=== PATIENT | female | born 1970 | race Caucasian/White ===

== ENCOUNTER 2017-12-07 22:23 | Emergency (ER) | payer MEDICAID ==
[~2017-12-07] VITALS: Ht 160 cm; Wt 69.9 kg
[~2017-12-07 22:23] MED LIST: ALPR1TAB2 PO
[2017-12-07 22:26] VITALS: BP 115/79
[2017-12-07] MEDS ORDERED: ONDANSETRON ODT 4 MG PO ONE (23:00)
[2017-12-07] MEDS ORDERED: ONDANSETRON ODT 4 MG ONE (23:06)
== END 2017-12-08 00:01 | disposition home or self-care (01) ==
LOC: ED 23:59
DX: S90.562A Insect bite (nonvenomous), left ankle, initial encounter (principal); S30.860A Insect bite (nonvenomous) of lower back and pelvis, initial encounter; L03.312 Cellulitis of back [any part except buttock and flank]; W57.XXXA Bitten or stung by nonvenomous insect and other nonvenomous arthropods, initial encounter; Y93.89 Activity, other specified; Y92.009 Unspecified place in unspecified non-institutional (private) residence as the place of occurrence of the external cause; Y99.8 Other external cause status
CPT/HCPCS: 99283; Q0162